=== PATIENT | male | born 1990 | race African-American/Black ===

== ENCOUNTER 2019-03-30 15:47 | Emergency (ER) | payer MEDICAID ==
[~2019-03-30] VITALS: Ht 172.7 cm; Wt 88.9 kg
[~2019-03-30 15:47] MED LIST: AMBIEN 10 MG TA10 MG; APAP500 PO; BACTROBAN NASAL1 GM NS; BENTYL 10 MG CA10 MG; HUMALOG PE100 UNIT/M SC; HUMALOG100 UNIT/1 SQ; KEPPRA 500 MG500 M1 PO; LANTUS SUBQ; LISINOPRIL20 MG PO; NEURONTIN600 MG; NEURONTIN600 MG PO; NORCO 5-325 TA1 EACH PO; NOVOLOG100 UNIT/1 SUBQ; OXYCONTIN10 M1; OXYIR5 MG OR; PEPCID40 MG; PERCOCET 5-3251 EACH PO; PRINIVIL OR; PROTONIX40 M2 OR; RITALIN; SIMVASTATIN5 MG
[2019-03-30] MEDS ORDERED: PROTONIX 20 MG20 MG PO (15:52)
[2019-03-30] MEDS ORDERED: BLOOD PRESSURE1 EACH MISCELL (16:33)
[2019-03-30 17:34] VITALS: BP 168/112
== END 2019-03-30 17:38 | disposition home or self-care (01) ==
LOC: M.ERS 15:47
DX: E10.65 Type 1 diabetes mellitus with hyperglycemia (principal); F17.210 Nicotine dependence, cigarettes, uncomplicated; Z88.0 Allergy status to penicillin; Z88.8 Allergy status to other drugs, medicaments and biological substances